=== PATIENT | male | born 1995 | race Caucasian/White ===

== ENCOUNTER 2016-09-08 19:52 | Emergency (ER) | payer OTHER ==
[~2016-09-08] VITALS: Ht 180.3 cm; Wt 145.2 kg
--- NOTE | ~2016-09-08 | EKG ---
[place] [address] [employer] [address] ELECTROCARDIOGRAM REPORT Name: OCTAVIANO KUMARI Room #: DEP GHISLAINE Bernard#: [id number] Admission: 09/08/16 Attend Phys: Discharge: 09/08/16 Date of : [birth year] Report #: [id number] THIS REPORT FOR: //name// [facility] ED Test Date: 2016-09-08 Test Time: 19:56:53 Pat Name: OCTAVIANO KUMARI Department: Room: Gender: Service Delivery Analyst: Louie SINGH : 1995 Requested By: Jarett Raymond Order Number: [id number] MD: Joseph Sinclair Measurements Intervals [place] Rate: 88 P: 41 NV: 143 QRS: 14 QRSD: 95 T: 32 QT: 342 QTc: 414 Interpretive Statements Sinus rhythm Baseline wander in multiple lead(s) No previous ECG available for comparison Electronically Signed On 09-09-2016 8:04:06 POLITICAL CONSULTANT by Joseph Sinclair [email or web address] <ELECTRONICALLY SIGNED> By: Joseph Sinclair MD, [facility] 09/09/16 [id number] Joseph Sinclair MD, FACC /EPI
[2016-09-08 20:19] LABS: ABSOLUTE NEUTROPHILS 9.7 thou/uL (1.4-8.2); EOSINOPHILS 1.2 % (0.0-3.0); HEMATOCRIT 45.7 % (42.0-52.0); HEMOGLOBIN 15.5 gm/dL (14.0-18.0); LYMPHOCYTES 30.2 % (24.0-44.0); MCHC 33.9 % (28.0-37.0); MCV 85.5 fL (80.0-100.0); MONOCYTES 6.9 % (1.0-8.0); PLATELET COUNT 278 thou/uL (150-400); POLYS 60.7 % (36.0-66.0); RBC 5.34 mil/uL (4.50-6.00); RDW 13.3 % (10.5-14.5); WBC 15.9 thou/uL (4.0-11.0)
[2016-09-08 20:21] LABS: MANUAL DIFF NO
[2016-09-08 20:25] LABS: ANION GAP 9 mmol/L (7-16); BUN 18 mg/dL (7-18); CALCIUM 9.5 mg/dL (8.5-10.1); CHLORIDE 101 mmol/L (98-107); CO2 29 mmol/L (21-32); CREATININE 0.9 mg/dL (0.6-1.3); GLUCOSE 125 mg/dL (70-99); POTASSIUM 3.6 mmol/L (3.5-5.1); SODIUM 139 mmol/L (136-145)
[2016-09-08 20:34] LABS: TROPONIN-I < 0.04 ng/mL (<0.04-0.07)
== END 2016-09-08 21:02 | disposition home or self-care (01) ==
LOC: ER 19:52
PROVIDERS: Physician Assistant
DX: R07.89 Other chest pain (principal); F41.9 Anxiety disorder, unspecified; F10.99 Alcohol use, unspecified with unspecified alcohol-induced disorder